=== PATIENT | female | born 1955 | race Caucasian/White ===

== ENCOUNTER 2019-09-11 21:15 | Emergency (ER) | payer MEDICARE ==
[~2019-09-11] VITALS: Ht 162.6 cm; Wt 74.1 kg
[2019-09-11 21:32] VITALS: TEMP 98.5
[2019-09-11 23:48] LABS: BASO % 0.8 % (0.0-2.0); EOS # 0.1 (0.0-0.7); EOS % 3.2 % (0-4.0); GRAN # 1.8 (1.4-6.5); GRAN % 49.6 % (42.2-75.2); HEMATOCRIT 37.9 % (37.0-47.0); HEMOGLOBIN 12.4 g/dl (12.5-16.0); LYMPH # 1.2 (1.2-3.4); LYMPH % 32.4 % (20.0-51.0); MEAN CELL VOLUME 90 fl (80.0-100.0); MEAN CORPUSCULAR HEMOGLOBIN 29 pg (27.0-31.0); MEAN CORPUSCULAR HGB CONC 33 g/dl (33.0-37.0); MEAN PLATELET VOLUME 10.4 fl (7.4-10.4); MONO # 0.5 (0.1-0.6); MONO % 13.2 % (1.7-9.3); PLATELET COUNT 167 K/mm3 (130-400); RED BLOOD COUNT 4.22 M/mm3 (4.10-5.30); REDCELL DISTRIBUTION WIDTH-CV 12.2 % (11.5-14.5)
[2019-09-12 00:01] LABS: ALBUMIN 3.8 gm/dL (3.5-5.0); BILIRUBIN,TOTAL 0.7 mg/dL (0.0-1.0); CALCIUM 8.8 mg/dL (8.4-10.2); CREATININE, serum 0.56 (0.52-1.25); TOTAL PROTEIN 6.8 gm/dL (6.4-8.2)
[2019-09-12 01:10] LABS: COLLECTION METHOD CLEAN CATCH
[2019-09-12 01:17] LABS: MUCOUS Present /lpf; PH 5 (5-8); SQUAMOUS EPITHELIAL 0-2 /hpf; URINE APPEARANCE Clear; URINE BACTERIA None Seen /hpf; URINE BILIRUBIN Negative (NEGATIVE); URINE BLOOD Negative (NEGATIVE); URINE COLOR Yellow; URINE GLUCOSE Negative (NEGATIVE); URINE KETONE Negative (NEGATIVE); URINE LEUKOCYTE ESTERASE Negative (NEGATIVE); URINE NITRATE Negative (NEGATIVE); URINE PROTEIN(semi-quant) Negative (NEGATIVE); URINE RBC 0-2 /hpf; URINE UROBILINOGEN Negative (NEGATIVE)
[2019-09-12] MEDS ORDERED: SYNTHROID0.112 MG/T PO (01:36)
[2019-09-12] MEDS ORDERED: PRINIVIL20 MG PO (01:36)
[2019-09-12] MEDS ORDERED: CRESTOR 10MG10 MG PO (01:37)
[2019-09-12] MEDS ORDERED: NEURONTIN400 MG/CAP PO (01:37)
[2019-09-12] MEDS ORDERED: NORCO 325 MG-51 TAB PO (01:38)
[2019-09-12] MEDS ORDERED: LINZESS145CAP (01:38)
[2019-09-12] MEDS ORDERED: PRILOSEC 20MG20 MG PO (01:38)
[2019-09-12] MEDS ORDERED: ASPIRIN 81M81 MG/TA2 PO (01:39)
[2019-09-12] MEDS ORDERED: AMOXICILLIN 8751 TAB PO (01:45)
[2019-09-12 03:05] VITALS: BP 139/80; PULSE 73
== END 2019-09-12 03:05 | disposition home or self-care (01) ==
LOC: COL.ER 21:15
PROVIDERS: Emergency Medicine
DX: K57.32 Diverticulitis of large intestine without perforation or abscess without bleeding (principal); I10 Essential (primary) hypertension; E03.9 Hypothyroidism, unspecified; F17.210 Nicotine dependence, cigarettes, uncomplicated; Z90.89 Acquired absence of other organs; Z90.710 Acquired absence of both cervix and uterus; Z79.82 Long term (current) use of aspirin
CPT/HCPCS: J2270; J2405; J7030